=== PATIENT | female | born 1945 | race Caucasian/White ===

== ENCOUNTER 2017-04-04 09:29 | Outpatient (CLI) | payer MEDICARE | END 2017-04-04 09:30 | disposition home or self-care (01) | LOC: MWLC DTY 09:29 | PROVIDERS: ATTEND Internal Medicine Geriatric Medicine | DX: E11.9 Type 2 diabetes mellitus without complications (principal); E78.5 Hyperlipidemia, unspecified | CPT/HCPCS: 97802 ==

== ENCOUNTER 2018-10-22 13:00 | Outpatient (CLI) | payer MEDICARE ==
--- NOTE | 2018-10-22 14:02 | BD ---
DEXA BONE DENSITY STUDY: HISTORY: Asymptomatic menopausal state. FINDINGS: Lumbar Spine: BMD (g/cm2) L1 0.853 T-Score: -1.2 L2 0.792 T-Score: -2.1 L3 0.893 T-Score: -1.7 L4 0.879 T-Score: -1.7 L1-L4 0.857 T-Score: -1.7 Evidence for osteopenia with increased risk for fracture. Femoral Neck: 0.616 T-Score: -2.1 Total Femur: 0.808 T-Score: -1.1 Evidence for osteopenia with increased risk for fracture. FRAX Score: Major osteoporotic fracture 12%. Hip fracture 2.4%. POS: [facility]
--- NOTE | 2018-11-16 16:44 | MMO ---
Bilateral MAMMO Bilat Screen [facility]. CLINICAL HISTORY: Patient is 73 years old and is seen for screening. The patient has no family history of breast cancer. The patient has no personal history of cancer. VIEWS: The views performed were: bilateral craniocaudal with tomosynthesis and bilateral mediolateral oblique with tomosynthesis. FILMS COMPARED: The present examination has been compared to prior imaging studies performed at [facility] on 08/01/2012, 11/06/2013 and 11/04/2015. MAMMOGRAM FINDINGS: There are scattered fibroglandular densities. There are stable benign appearing calcifications seen in both breasts. There are no suspicious masses, suspicious calcifications, or new areas of architectural distortion. IMPRESSION: THERE IS NO MAMMOGRAPHIC EVIDENCE OF MALIGNANCY. A ROUTINE FOLLOW-UP MAMMOGRAM IN 1 YEAR IS RECOMMENDED. THE RESULTS OF THIS EXAM WERE SENT TO THE PATIENT. ACR BI-RADS Category 2 - Benign finding MAMMOGRAPHY NOTE: 1. A negative mammogram report should not delay a biopsy if a dominant of clinically suspicious mass is present. 2. Approximately 10% to 15% of breast cancers are not detected by mammography. 3. Adenosis and dense breasts may obscure an underlying neoplasm.
== END 2018-10-22 13:01 | disposition home or self-care (01) ==
LOC: BICMAMMO 13:00
PROVIDERS: ATTEND Internal Medicine Geriatric Medicine
DX: Z12.31 Encounter for screening mammogram for malignant neoplasm of breast (principal); Z78.0 Asymptomatic menopausal state; M85.89 Other specified disorders of bone density and structure, multiple sites
CPT/HCPCS: 77063; 77067; 77080

== ENCOUNTER 2021-06-11 14:40 | Outpatient (CLI) | payer MEDICARE ==
[2021-06-11 16:00] LABS: Hemoglobin 14.3 g/dL (12.0-15.5); Mean Corpuscular HGB CONC 34.1 g/dL (32.0-36.0); Mean Corpuscular Hemoglobin 31.1 pg (27.0-33.0); Mean Corpuscular Volume 91.1 fl (81.6-98.3); Platelet Count 445 10x3/uL (150-450); RBC Distribution Width 11.8 % (11.5-14.5); White Blood Cell (WBC) Count 11.8 10x3/uL (3.5-10.5)
[2021-06-11 16:03] LABS: Anion Gap 14 mmol/L (10-20); BUN (Urea Nitrogen) 13 mg/dL (9.8-20.1); Calc. Creatinine Clearance 0 mL/min (70-130); Calcium 9.8 mg/dL (7.8-10.44); Carbon Dioxide 25 mmol/L (23-31); Chloride 103 mmol/L (98-107); Glucose 137 mg/dL (83-110); Potassium 4.2 mmol/L (3.5-5.1); Sodium 138 mmol/L (136-145)
[2021-06-12 17:10] LABS: SARS-CoV-2 PCR by NAA Not Detected (NotDetected)
== END 2021-06-11 14:41 | disposition home or self-care (01) ==
LOC: LABBT 14:40
PROVIDERS: ATTEND Student in an Organized Health Care Education/Training Program
DX: Z01.818 Encounter for other preprocedural examination (principal); J35.1 Hypertrophy of tonsils; L29.9 Pruritus, unspecified; H60.543 Acute eczematoid otitis externa, bilateral; Z20.822 Contact with and (suspected) exposure to COVID-19
CPT/HCPCS: 80048; 85027; U0003; U0005; 93005; 93010

== ENCOUNTER 2021-06-15 06:51 | Day surgery (SDC) | payer MEDICARE ==
[2021-06-11 11:26] VITALS: BMI 35.3
[2021-06-15] MEDS ORDERED: EPINEPHrine 1 MG/ML AMP ONE ×2 (08:25→08:29)
[2021-06-15] MEDS ORDERED: Acetaminophen 500 MG TAB ONE (08:32)
[2021-06-15] MEDS ORDERED: Fentanyl 100 MCG/2 ML VIAL ONE (08:33)
[2021-06-15] MEDS ORDERED: Ketorolac Tromethamine 30 MG/ML VIAL ONE (08:43)
[2021-06-15] MEDS ORDERED: Succinylcholine 200 MG/10 ml SYRINGE FS ONE (08:43)
[2021-06-15] MEDS ORDERED: PROPOFOL 200 MG/20 ML VIAL ONE (08:43)
[2021-06-15] MEDS ORDERED: Dexamethasone 20 MG/5 ML VIAL ONE (08:43)
[2021-06-15] MEDS ORDERED: Rocuronium Bromide 10 MG/ML (10ML VIAL) ONE (08:43)
[2021-06-15] MEDS ORDERED: Lidocaine 1% PF 5 ML VIAL ONE (08:43)
[2021-06-15] MEDS ORDERED: Phenylephrine 10 MG/ML VIAL ONE (08:43)
[2021-06-15] MEDS ORDERED: Ondansetron PF 4 MG/2 ML Vial ONE (08:43)
== END 2021-06-15 11:14 | disposition home or self-care (01) ==
LOC: SDC 06:51
PROVIDERS: ATTEND Student in an Organized Health Care Education/Training Program
PROC: 0CBM8ZX Excision of Pharynx, Via Natural or Artificial Opening Endoscopic, Diagnostic (ICD-10-PCS; principal; 2021-06-15)
DX: J35.1 Hypertrophy of tonsils (principal); I10 Essential (primary) hypertension; E11.9 Type 2 diabetes mellitus without complications; L80 Vitiligo; E78.00 Pure hypercholesterolemia, unspecified; H60.543 Acute eczematoid otitis externa, bilateral; Z87.891 Personal history of nicotine dependence; Z79.82 Long term (current) use of aspirin; Z79.84 Long term (current) use of oral hypoglycemic drugs; Z79.899 Other long term (current) drug therapy; Z91.048 Other nonmedicinal substance allergy status
CPT/HCPCS: 88305; J0171; J1100; J1885; J2370; J2405; J2704; J3010

== ENCOUNTER 2021-12-31 13:14 | Outpatient (CLI) | payer MEDICARE | END 2021-12-31 13:15 | disposition home or self-care (01) | LOC: BICMAMMO 13:14 | PROVIDERS: ATTEND Family Medicine | DX: Z12.31 Encounter for screening mammogram for malignant neoplasm of breast (principal); R92.1 Mammographic calcification found on diagnostic imaging of breast | CPT/HCPCS: 77063; 77067 ==

== ENCOUNTER 2022-02-03 16:21 | Emergency (ER) | payer OTHER, MEDICARE ==
[2022-02-03] MEDS ORDERED: HYDROcodone/Acetaminophen 5/325 mg Tablet ONE (18:36)
== END 2022-02-03 21:30 | disposition home or self-care (01) ==
LOC: ERS 16:21
DX: S42.251A Displaced fracture of greater tuberosity of right humerus, initial encounter for closed fracture (principal); W01.198A Fall on same level from slipping, tripping and stumbling with subsequent striking against other object, initial encounter; Y93.01 Activity, walking, marching and hiking
CPT/HCPCS: 70450; 72125

== ENCOUNTER 2023-01-09 13:44 | Outpatient (CLI) | payer MEDICARE | END 2023-01-09 13:45 | disposition home or self-care (01) | LOC: BICMAMMO 13:44 | PROVIDERS: ATTEND Family Medicine | DX: Z12.31 Encounter for screening mammogram for malignant neoplasm of breast (principal); Z13.820 Encounter for screening for osteoporosis; N95.9 Unspecified menopausal and perimenopausal disorder; M81.0 Age-related osteoporosis without current pathological fracture | CPT/HCPCS: 77063; 77067; 77080 ==

== ENCOUNTER 2023-03-16 09:31 | Outpatient (CLI) | payer MEDICARE | END 2023-03-16 09:32 | disposition home or self-care (01) | LOC: BICRAD 09:31 | PROVIDERS: ATTEND Nurse Practitioner Family | DX: R10.31 Right lower quadrant pain (principal); M46.1 Sacroiliitis, not elsewhere classified; M16.9 Osteoarthritis of hip, unspecified; M77.8 Other enthesopathies, not elsewhere classified | CPT/HCPCS: 72170 ==

== ENCOUNTER 2023-03-22 12:29 | Outpatient (CLI) | payer MEDICARE ==
[~2023-03-22 12:29] MED LIST: Iopamidol 370 76% 100 ML VIAL ONE
== END 2023-03-22 12:30 | disposition home or self-care (01) ==
LOC: CT 12:29
PROVIDERS: ATTEND Nurse Practitioner Family
DX: R10.2 Pelvic and perineal pain (principal); R10.31 Right lower quadrant pain; K40.90 Unilateral inguinal hernia, without obstruction or gangrene, not specified as recurrent; K74.60 Unspecified cirrhosis of liver
CPT/HCPCS: 74178; 82565

== ENCOUNTER 2023-10-09 06:43 | Inpatient (IN) | payer MEDICARE ==
[2023-10-04 10:35] LABS: Bilirubin Neg (Negative); Blood, Urine Negative (Negative); Clarity Slightly Cloudy (Clear); Glucose, Urine (Dipstick) Normal (Negative); Ketone, Urine Negative (Negative); Leukocyte 100 (Negative); Nitrite Negative (Negative); Protein, Urine (Dipstick) 15 mg/dl (Neg-Trace); Urobilinogen Normal mg/dL (Less than 2)
[2023-10-04 10:45] LABS: #Basophils 0.12 10x3/uL (0.0-0.2); #Eosinphils 0.32 10x3/uL (0.0-0.5); #Neutrophils 8.35 10x3/uL (1.5-8.4); %Basophils 0.9 % (0.0-2.0); %Eosinophils 2.5 % (0.0-6.0); %Lymphocytes 24.6 % (18.0-47.0); %Neutrophils 64.6 % (40.0-75.0); Hematocrit 46.2 % (34.9-44.5); Hemoglobin 16.4 g/dL (12.0-15.5); Mean Corpuscular HGB CONC 35.5 g/dL (32.0-36.0); Mean Corpuscular Volume 90.1 fl (81.6-98.3); Mean Platelet Volume 9.5 fl (7.4-10.4); Platelet Count 596 10x3/uL (150-450); RBC Distribution Width 11.9 % (11.5-14.5); Red Blood Cell (RBC) Count 5.13 10x6/uL (3.90-5.03); White Blood Cell (WBC) Count 12.9 10x3/uL (3.5-10.5)
[2023-10-04 10:57] LABS: Anion Gap 15 mmol/L (10-20); BUN (Urea Nitrogen) 19 mg/dL (9.8-20.1); Calc. Creatinine Clearance 0 mL/min (70-130); Calcium 10.6 mg/dL (7.8-10.44); Carbon Dioxide 25 mmol/L (23-31); Chloride 100 mmol/L (98-107); Estimated GFR 75; Glucose 216 mg/dL (83-110); Prothrombin Time 10.6 sec (9.5-12.1); Sodium 136 mmol/L (136-145)
[2023-10-09] MEDS ORDERED: Bupivacaine PF 0.5% 30 ML VIAL ONE ×2 (08:16→09:30)
[2023-10-09] MEDS ORDERED: Midazolam HCl 2 mg/2 ml Vial ONE (08:17)
[2023-10-09] MEDS ORDERED: fentaNYL 50 mcg/mL 1 mL Vial ONE (08:17)
[2023-10-09] MEDS ORDERED: PROPOFOL 40 ML ONE (08:40)
[2023-10-09] MEDS ORDERED: CEFAZOLIN 2 GM VIAL ONE (08:57)
[2023-10-09] MEDS ORDERED: Sodium Chloride 0.9% 100 ML ONE ×3 (08:57→11:42)
[2023-10-09] MEDS ORDERED: Tranexamic Acid 1,000 MG/10 ML VIAL ONE ×2 (09:11→11:42)
[2023-10-09] MEDS ORDERED: Vancomycin 1 GM/200 ML (FROZEN) BAG ONE (09:12)
[2023-10-09] MEDS ORDERED: Ropivacaine 0.2% 550 ML 550 ML NERVE BLCK SCH (09:30)
[2023-10-09] MEDS ORDERED: Ondansetron PF 4 MG/2 ML Vial IVP PRN ×2 (09:30→11:10)
[2023-10-09] MEDS ORDERED: Promethazine HCl 25 MG/ML VIAL IM PRN ×2 (09:30→11:10)
[2023-10-09] MEDS ORDERED: Zolpidem Tartrate 5 MG TAB PO PRN (09:30)
[2023-10-09] MEDS ORDERED: PHENYLEPHRINE-NS 100 MCG/ML 10 ML SYRINGE ONE (09:45)
[2023-10-09] MEDS ORDERED: SUCCINYLCHOLINE/SOD CL,ISO/PF 200 MG/10 ML SYRINGE FS ONE (09:45)
[2023-10-09] MEDS ORDERED: Lidocaine 1% PF 5 ML VIAL ONE (09:45)
[2023-10-09] MEDS ORDERED: Ketorolac Tromethamine 30 MG (1 mL) VIAL ONE (09:45)
[2023-10-09] MEDS ORDERED: Dexamethasone 4 mg/ml Vial ONE (10:02)
[2023-10-09] MEDS ORDERED: HYDROmorphone 2 MG/ML VIAL ONE (10:24)
[2023-10-09] MEDS ORDERED: Ondansetron PF 4 MG/2 ML Vial ONE (10:59)
[2023-10-09] MEDS ORDERED: traMADol HCl 50 MG TAB PO PRN (11:10)
[2023-10-09] MEDS ORDERED: diphenhydrAMINE 25 MG CAP PO PRN (11:10)
[2023-10-09] MEDS ORDERED: Acetaminophen 325 MG TAB PO PRN (11:10)
[2023-10-09] MEDS ORDERED: HYDROcodone/Acetaminophen 10/325 mg Tablet PO PRN ×2 (11:10)
[2023-10-09] MEDS ORDERED: Tranexamic Acid 1,000 MG in Sodium Chloride 0.9% 100 ML IVPB SCH (11:15)
[2023-10-09] MEDS ORDERED: fentaNYL PF 100 MCG/2 ML SYRINGE ONE (11:41)
[2023-10-09] MEDS ORDERED: Promethazine HCl 25 MG/ML VIAL ONE (12:04)
[2023-10-09] MEDS: Sodium Chloride 0.9% 1,000 ML IV SCH (14:00)
[2023-10-09 14:02] VITALS: BMI 33.0
[2023-10-09] MEDS: fentaNYL 50 mcg/mL 1 mL Vial SLOW IVP PRN (14:22)
[2023-10-09] MEDS: metFORMIN 500 MG TAB PO SCH (17:05)
[2023-10-09] MEDS: CEFAZOLIN 2 GM in Sodium Chloride 0.9% 100 ML IVPB SCH (17:07)
[2023-10-09] MEDS: Vancomycin (BATCH) 1.5 GM in Premix 1 BAG IVPB SCH (22:29)
[2023-10-09] MEDS: Aspirin 81 mg Enteric Coated Tablet PO SCH (22:29)
[2023-10-09] MEDS: Cholecalciferol 1,000 UNITS (25 MCG) TAB PO SCH (22:29)
[2023-10-09] MEDS: Zolpidem Tartrate 5 MG TAB PO PRN (22:29)
[2023-10-10] MEDS: Valsartan 80 MG TAB PO SCH (08:45)
[2023-10-10] MEDS: CeleCOXIB 100 MG CAP PO SCH (08:45)
[2023-10-10] MEDS: Ferrous Gluconate 324 MG TAB PO SCH (08:45)
[2023-10-10] MEDS: Senokot S 8.6-50 MG TAB PO SCH (08:46)
[2023-10-10] MEDS: Amlodipine 5 MG TAB PO SCH (08:46)
[2023-10-10] MEDS: Atorvastatin Calcium 10 MG TAB PO SCH (08:46)
[2023-10-10] MEDS: Escitalopram Oxalate 10 mg Tablet PO SCH (08:47)
[2023-10-10] MEDS: Hydrochlorothiazide 25 MG TAB PO SCH (08:47)
[2023-10-10] MEDS: Glimepiride 2 MG TAB PO SCH (08:47)
[2023-10-10] MEDS: Multivitamin W/ Minerals 1 TAB PO SCH (09:00)
[2023-10-10] MEDS ORDERED: Aspirin Chewable 81 MG TAB PO SCH (09:00)
[2023-10-10 09:15] LABS: Hematocrit 31.7 % (36.0-47.0); Hemoglobin 10.8 g/dL (12.0-16.0); Mean Corpuscular HGB CONC 34.1 g/dL (32.0-36.0); Mean Corpuscular Hemoglobin 31.2 pg (27.0-31.0); Mean Corpuscular Volume 91.6 fL (78.0-98.0); Mean Platelet Volume 9.9 fL (7.4-10.4); Platelet Count 402 10x3/uL (130-400); RBC Distribution Width 11.9 % (11.5-14.5); Red Blood Cell (RBC) Count 3.46 mill/uL (4.20-5.40)
[2023-10-10] MEDS: traMADol HCl 50 MG TAB PO PRN ×2 (14:05→20:43)
[2023-10-10] MEDS: HYDROcodone/Acetaminophen 10/325 mg Tablet PO PRN (16:23)
[2023-10-11 06:22] LABS: Hematocrit 31.8 % (36.0-47.0); Hemoglobin 10.7 g/dL (12.0-16.0); Mean Corpuscular HGB CONC 33.6 g/dL (32.0-36.0); Mean Corpuscular Hemoglobin 31.2 pg (27.0-31.0); Mean Corpuscular Volume 92.7 fL (78.0-98.0); Mean Platelet Volume 9.4 fL (7.4-10.4); Platelet Count 366 10x3/uL (130-400); RBC Distribution Width 12.2 % (11.5-14.5); Red Blood Cell (RBC) Count 3.43 mill/uL (4.20-5.40)
[2023-10-11] MEDS: HYDROcodone/Acetaminophen 10/325 mg Tablet PO PRN (09:50)
[2023-10-13 05:44] LABS: Hematocrit 31.3 % (36.0-47.0); Hemoglobin 10.7 g/dL (12.0-16.0); Mean Corpuscular HGB CONC 34.2 g/dL (32.0-36.0); Mean Corpuscular Hemoglobin 30.8 pg (27.0-31.0); Mean Corpuscular Volume 90.2 fL (78.0-98.0); Mean Platelet Volume 9.4 fL (7.4-10.4); Platelet Count 405 10x3/uL (130-400); RBC Distribution Width 11.9 % (11.5-14.5); Red Blood Cell (RBC) Count 3.47 mill/uL (4.20-5.40)
[2023-10-14 12:28] VITALS: BP 123/72; TEMP 98.1
== END 2023-10-14 13:30 | disposition home or self-care (01) | DRG 470 ==
LOC: SDC 06:43 → SURG B 12:33 → OBSVTOIN 10-10 12:51
PROVIDERS: ADMIT Orthopaedic Surgery; ATTEND Orthopaedic Surgery
PROC: 0SRC0J9 Replacement of Right Knee Joint with Synthetic Substitute, Cemented, Open Approach (ICD-10-PCS; principal; 2023-10-09)
DX: M17.11 Unilateral primary osteoarthritis, right knee (principal); D62 Acute posthemorrhagic anemia; E11.9 Type 2 diabetes mellitus without complications; E78.00 Pure hypercholesterolemia, unspecified; F32.A Depression, unspecified; I10 Essential (primary) hypertension; Z98.890 Other specified postprocedural states; Z90.710 Acquired absence of both cervix and uterus; Z90.49 Acquired absence of other specified parts of digestive tract; Z79.899 Other long term (current) drug therapy; Z79.82 Long term (current) use of aspirin; Z79.84 Long term (current) use of oral hypoglycemic drugs; Z87.891 Personal history of nicotine dependence
CPT/HCPCS: 36415; 36416; 80048; 81003; 85025; 85027; 85610; 86850; 86900; 86901; 87081; A4306; C1713; C1776; J0665; J1100; J1170; J1885; J2250; J2405; J2550; J2704; J2795; J3010; J3370; J3370-JW; J3490; J7050

== ENCOUNTER 2024-03-07 12:49 | Outpatient (CLI) | payer MEDICARE | END 2024-03-07 12:50 | disposition home or self-care (01) | LOC: CT 12:49 | PROVIDERS: ATTEND Physician Assistant Medical | DX: R06.02 Shortness of breath (principal) | CPT/HCPCS: 36415; 71260; 82565 ==

== ENCOUNTER 2024-04-19 14:18 | Outpatient (CLI) | payer MEDICARE | END 2024-04-19 14:19 | disposition home or self-care (01) | LOC: BICMAMMO 14:18 | PROVIDERS: ATTEND Family Medicine | DX: Z12.31 Encounter for screening mammogram for malignant neoplasm of breast (principal); Z78.0 Asymptomatic menopausal state; M85.89 Other specified disorders of bone density and structure, multiple sites | CPT/HCPCS: 77063; 77067; 77080 ==

== ENCOUNTER 2024-05-06 09:22 | Outpatient (CLI) | payer MEDICARE | END 2024-05-06 09:23 | disposition home or self-care (01) | LOC: ULT 09:22 | PROVIDERS: ATTEND Family Medicine | DX: R10.13 Epigastric pain (principal); K76.0 Fatty (change of) liver, not elsewhere classified | CPT/HCPCS: 76705 ==